=== PATIENT | female | born 1935 | race Caucasian/White ===

== ENCOUNTER 2016-11-17 13:56 | Emergency (ER) | payer MEDICARE ==
[2016-11-17 14:54] LABS: HEMOGLOBIN 12.8 gm/dl (12.3-15.3); RED BLOOD COUNT 4.02 M/UL (4.00-5.10); WHITE BLOOD COUNT 8.9 K/UL (4.5-11.0)
== END 2016-11-17 20:15 | disposition home or self-care (01) ==
LOC: ER1 13:56
PROVIDERS: Emergency Medicine
DX: T84.020A Dislocation of internal right hip prosthesis, initial encounter (principal); E11.9 Type 2 diabetes mellitus without complications; X50.1XXA Overexertion from prolonged static or awkward postures, initial encounter; Y92.009 Unspecified place in unspecified non-institutional (private) residence as the place of occurrence of the external cause; Z79.02 Long term (current) use of antithrombotics/antiplatelets; Z79.899 Other long term (current) drug therapy
CPT/HCPCS: 27265; 36415; 73501; 73502; 73560; 80048; 82550; 82553; 84484; 85025; 85610; 96374; 96375; 99152; 99285; J2270; J2405; J7030; J7040

== ENCOUNTER 2016-11-28 17:41 | Observation (INO) | payer MEDICARE ==
[~2016-11-28] VITALS: Ht 175.3 cm; Wt 101.0 kg
[2016-11-28 18:53] LABS: HEMOGLOBIN 13.7 gm/dl (12.3-15.3); RED BLOOD COUNT 4.39 M/UL (4.00-5.10); WHITE BLOOD COUNT 11.4 K/UL (4.5-11.0)
[2016-11-29] MEDS ORDERED: TOPROL XL 50 MG50 MG PO (01:27)
[2016-11-29] MEDS ORDERED: PLAVIX 75 MG TA75 MG PO (01:27)
[2016-11-29] MEDS ORDERED: SYNTHROID 25 M25 MCG PO (01:28)
[2016-11-29] MEDS ORDERED: CELEBREX200 MG PO (01:28)
[2016-11-29] MEDS ORDERED: ALPRAZOLAM0.5 MG PO (01:29)
[2016-11-29] MEDS ORDERED: NORCO 10-325 T1 EACH PO (15:43)
== END 2016-11-29 17:40 | disposition home or self-care (01) ==
LOC: ER1 17:41 → ZEROF 20:20 → M/S 20:20
PROVIDERS: Family Medicine; ADMIT Orthopaedic Surgery
PROC: 0SWAXJZ Revision of Synthetic Substitute in Right Hip Joint, Acetabular Surface, External Approach (ICD-10-PCS; principal; 2016-11-28)
DX: T84.020D Dislocation of internal right hip prosthesis, subsequent encounter (principal); I10 Essential (primary) hypertension; J44.9 Chronic obstructive pulmonary disease, unspecified; Z91.041 Radiographic dye allergy status; Z79.1 Long term (current) use of non-steroidal anti-inflammatories (NSAID); Z79.899 Other long term (current) drug therapy; Z96.641 Presence of right artificial hip joint; Z98.890 Other specified postprocedural states
CPT/HCPCS: 36415; 71010; 73501; 73502; 76000; 80053; 82550; 82553; 83874; 84484; 85025; 93005; 96361; 96374; 96375; 96376; 99285; G0378; J2250; J2270; J2405; J3010; J7120